=== PATIENT | female | born 1965 | race Caucasian/White ===

== ENCOUNTER 2020-11-24 06:56 | Emergency (ER) | payer BC, OTHER, SELFPAY ==
[2020-11-24 07:31] LABS: Absolute Lymphocytes (CBC) 2.2 K/uL (0.7-4.9); Basophils % 0.5 % (0-1.3); Lymphocytes % 24.7 % (15.3-44.8); MPV 8.2 fL (7.6-11.3); RBC Red Blood Cell Count 4.42 M/uL (3.86-4.86)
[2020-11-24] MEDS ORDERED: NA CHLORIDE 0.9% 500 ML ONE (07:45)
[2020-11-24] MEDS ORDERED: KETOROLAC 30 MG/ML INJ ONE (07:45)
[2020-11-24] MEDS ORDERED: ONDANSETRON 4 MG/2 ML VIAL ONE (07:45)
[2020-11-24] MEDS ORDERED: FENTANYL CITR 100 MCG/2 ML ONE (07:45)
[2020-11-24 07:52] LABS: Albumin 4.3 g/dL (3.4-5.0); Bilirubin Direct 0.2 mg/dL (0-0.2); Bilirubin Total 0.5 mg/dL (0.2-1.0); Protein, Total 8.6 g/dL (6.4-8.2)
[2020-11-24 08:02] LABS: Potassium 2.8 mmol/L (3.5-5.1)
[2020-11-24] MEDS ORDERED: KCL 20 MEQ/100 mL IVPB 20 MEQ/100 ML BAG IV ONE (08:26)
[2020-11-24] MEDS ORDERED: NA CHLORIDE 0.9% 250 ML ONE (08:41)
--- NOTE | 2020-11-24 09:04 | RAD REPORT ---
EXAM DESCRIPTION: CTAbdomen Pelvis W Contrast - 11/24/2020 8:40 am CLINICAL HISTORY: Abdominal pain. back pain;Abd pain COMPARISON: Abdomen Pelvis W Contrast dated 10/30/2017 TECHNIQUE: Biphasic CT imaging of the abdomen and pelvis was performed with 100 ml non-ionic IV cont rast. All CT scans are performed using dose optimization technique as appropriate and may include automated exposure control or mA/KV adjustment according to patient size. FINDINGS: The lung bases are clear.Small hiatal hernia. The liver, spleen, pancreas, adrenal glands and kidneys are within normal limits. Cholelithiasis. No bowel obstruction, free air, free fluid or abscess. The appendix is normal. No evidence of signi ficant lymphadenopathy. No suspicious bony findings. IMPRESSION: Cholelithiasis.
--- NOTE | 2020-11-24 09:33 | EDPHYS ---
Physician Documentation [facility] Name: Gayle Aj Age: 55 yrs Sex: Female : 1965 Arrival Date: 11/24/2020 Time: 06:56 Bed 16 Private MD: ED Physician Misa Barnett HPI: 11/24 06:58 This 55 yrs old Female presents to ER via Unassigned with complaints of Back cp Pain. 06:58 The patient presents with pain that is acute, with no known mechanism of injury. The cp symptoms are located in the left subscapular area, right subscapular area and mid back area. Onset: The symptoms/episode began/occurred suddenly, this morning. Associated signs and symptoms: Pertinent positives: abdominal pain, pain all over, Pertinent negatives: chest pain, constipation, dysuria, fever, incontinence, numbness, tingling, vomiting, weakness. The problem was sustained pain started suddenly upon awakening. 06:58 Modifying factors: the patient symptoms are aggravated by any movement. cp Historical: - Allergies: 06:59 No Known Allergies; ad5 - PMHx: 06:59 compressed disc C3-C4; Fibromyalgia; interstitial cystitis; ad5 - Immunization history:: Adult Immunizations unknown. - Social history:: Smoking status: unknown. ROS: 06:59 Abdomen/GI: Positive for abdominal pain, Negative for vomiting, diarrhea, constipation, cp bowel incontinence. 06:59 Back: Positive for pain at rest, pain with movement. 06:59 Constitutional: Negative for body aches, chills, fever, poor PO intake. cp 06:59 Eyes: Negative for injury, pain, redness, and discharge. cp 06:59 ENT: Negative for ear pain, sore throat, difficulty swallowing, difficulty handling secretions. 06:59 Cardiovascular: Negative for chest pain, palpitations. 06:59 Respiratory: Negative for cough, shortness of breath, wheezing. 06:59 : Negative for urinary symptoms, bladder incontinence. 06:59 Skin: Negative for rash. 06:59 Neuro: Negative for altered mental status, dizziness, headache, numbness, weakness. 06:59 All other systems are negative. Exam: 07:05 Constitutional: The patient appears in no acute distress, alert, awake, non-toxic, well cp developed, well nourished, uncomfortable. 07:05 Head/Face: Normocephalic, atraumatic. cp 07:05 Eyes: Periorbital structures: appear normal, Conjunctiva: normal, no exudate, no injection, Sclera: no appreciated abnormality, Lids and lashes: appear normal, bilaterally. 07:05 ENT: External ear(s): are unremarkable, Nose: is normal, Mouth: Lips: moist, Oral mucosa: moist, Posterior pharynx: Airway: no evidence of obstruction, patent. 07:05 Neck: C-spine: vertebral tenderness, is not appreciated, crepitus, is not appreciated, ROM/movement: is normal, is supple, no meningismus, no nuchal rigidity. 07:05 Chest/axilla: Inspection: normal, Palpation: is normal, no crepitus, no tenderness. 07:05 Cardiovascular: Rate: normal, Rhythm: regular, Edema: is not appreciated, JVD: is not appreciated. 07:05 Respiratory: the patient does not display signs of respiratory distress, Respirations: normal, no use of accessory muscles, no retractions, labored breathing, is not present, Breath sounds: are clear throughout, no decreased breath sounds, no stridor, no wheezing. 07:05 Abdomen/GI: Inspection: abdomen appears normal, Bowel sounds: active, all quadrants, Palpation: soft, in all quadrants, mild abdominal tenderness, in the right upper quadrant, rebound tenderness, is not appreciated, voluntary guarding, is not appreciated, involuntary guarding, is not appreciated. 07:05 Back: pain, that is severe, of the left subscapular area, right subscapular area and mid back area, ROM is painful, with all movement. 07:05 Skin: cellulitis, is not appreciated, no rash present. 07:05 Neuro: Orientation: to person, place \T\ time. Mentation: is normal, Motor: moves all fours, strength is normal, Sensation: is normal. 08:20 ECG was reviewed by the Attending Physician. cp Vital Signs: 06:57 BP 114 / 73; Pulse 76; Resp 20 S; Pulse Ox 100% on R/A; ad5 08:58 BP 112 / 75; Pulse 73; Resp 19 S; Pulse Ox 96% on R/A; jd3 10:08 BP 113 / 78; Pulse 69; Resp 16 S; Pulse Ox 99% on R/A; jd3 MDM: 07:00 Patient medically screened. cp 07:00 Differential diagnosis: Cholelithiasis Hydronephrosis ruptured disc, Ureterolithiasis cp vertebral fracture. 09:31 Data reviewed: vital signs, nurses notes, lab test result(s), radiologic studies, CT cp scan. Counseling: I had a detailed discussion with the patient and/or guardian regarding: the historical points, exam findings, and any diagnostic results supporting the discharge/admit diagnosis, lab results, radiology results, the need for outpatient follow up, a general surgeon, to return to the emergency department if symptoms worsen or persist or if there are any questions or concerns that arise at home. Response to treatment: the patient's symptoms have markedly improved after treatment, VSS. Pain markedly improved and patient resting comfortably in exam room. 11/24 06:59 Order name: Basic Metabolic Panel 11/24 06:59 Order name: CBC with Diff; Complete Time: 08:03 11/24 06:59 Order name: Hepatic Function; Complete Time: 08:03 11/24 08:03 Interpretation: Normal except: AST 53; TP 8.6; GLOB 4.3; A/G 1.0. 11/24 06:59 Order name: Lipase; Complete Time: 08:03 11/24 06:59 Order name: Urine Microscopic Only 11/24 06:59 Order name: Basic Metabolic Panel; Complete Time: 08:03 EDMS 11/24 09:08 Interpretation: Normal except: K 2.8; GLUC 135; GFR 51. 11/24 07:44 Order name: CT Abd/Pelvis - IV Contrast Only; Complete Time: 09:08 cp 11/24 08:06 Order name: Magnesium; Complete Time: 09:08 jd3 11/24 10:03 Order name: Urine Dipstick-Ancillary EDND 11/24 10:04 Order name: Urine --Ancillary (enter results) bd 11/24 06:59 Order name: IV Saline Lock; Complete Time: 07:19 cp 11/24 06:59 Order name: Labs collected and sent; Complete Time: 07:19 cp 11/24 06:59 Order name: Urine Dipstick-Ancillary (obtain specimen); Complete Time: 10:09 11/24 06:59 Order name: Urine Test (obtain specimen); Complete Time: 10:09 11/24 08:03 Order name: EKG; Complete Time: 08:03 cp 11/24 08:03 Order name: EKG - Nurse/Tech; Complete Time: 08:24 cp EC:20 Rate is 71 beats/min. Rhythm is regular. DC interval is normal. QRS interval is normal. cp QT interval is normal. Interpreted by me. Reviewed by me. Administered Medications: 07:31 Drug: NS 0.9% 500 ml Route: IV; Rate: bolus; Site: right antecubital; jd3 08:30 Follow up: Response: No adverse reaction; IV Status: Completed infusion; IV Intake: jd3 500ml 07:31 Drug: Ketorolac 15 mg Route: IVP; Site: right antecubital; jd3 08:30 Follow up: Response: No adverse reaction jd3 07:31 Drug: fentaNYL (PF) 25 mcg Route: IVP; Site: right antecubital; jd3 08:30 Follow up: Response: No adverse reaction; RASS: Alert and Calm (0) jd3 07:31 Drug: Zofran (Ondansetron) 4 mg Route: IVP; Site: right antecubital; jd3 08:30 Follow up: Response: No adverse reaction jd3 08:25 Drug: Potassium Chloride 20 mEq Route: IV; Rate: calculated rate; Site: right jd3 antecubital; 10:52 Follow up: Response: No adverse reaction; IV Status: Completed infusion jd3 Disposition Summary: 11/24/20 09:33 Discharge Ordered Location: Home cp Problem: new cp Symptoms: have improved cp Condition: Stable cp Diagnosis - Other cholelithiasis without obstruction cp Followup: cp - With: Zana Lim MD - When: 2 - 3 days - Reason: Recheck today's complaints Discharge Instructions: - Discharge Summary Sheet cp - Cholelithiasis cp Forms: - Medication Reconciliation Form cp - Thank You Letter cp - Antibiotic Education cp - Prescription Opioid Use cp Prescriptions: - Zofran 4 mg Oral Tablet - take 1 tablet by ORAL route every 12 hours As needed; 20 tablet; Refills: 0, cp Product Selection Permitted - dicyclomine 20 mg Oral Tablet - take 1 tablet by ORAL route 4 times per day; 30 tablet; Refills: 0, Product cp Selection Permitted Signatures: Dispatcher [employer] EDND Danilo Dumont PA PA cp Will, Chemo, RN RN jd3 Tien Roberson Corrections: (The following items were deleted from the chart) 11/25 07:00 11/24 06:59 Abdomen/GI: Positive for abdominal pain, [place]
--- NOTE | 2020-11-24 09:33 | ER ---
Nurse's Notes [facility] Name: Gayle Aj Age: 55 yrs Sex: Female : 1965 Arrival Date: 11/24/2020 Time: 06:56 Bed 16 Private MD: Diagnosis: Other cholelithiasis without obstruction Presentation: 11/24 06:57 Chief complaint: EMS states: Pt BIB EMS from home for c/o "spine pain" upon awakening ad5 this am. Pt denies recent fall or trauma. Distal SMCs intact, LYN without difficulty. VSS. 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 Coronavirus screen: At this time, the client does not indicate any symptoms associated with coronavirus-19. Ebola Screen: No symptoms or risks identified at this time. Initial Sepsis Screen: Does the patient meet any 2 criteria? No. Patient's initial sepsis screen is negative. Does the patient have a suspected source of infection? No. Patient's initial sepsis screen is negative. Risk Assessment: Do you want to hurt yourself or someone else? Unable to obtain. Onset of symptoms was November 24, 2020. 06:57 Method Of Arrival: EMS ad5 06:57 Acuity: DEYA 4 ad5 Triage Assessment: 07:00 General: Appears distressed, Behavior is cooperative, anxious. Pain: Complains of pain ad5 in back. Musculoskeletal: Circulation, motion, and sensation intact. Capillary refill < 3 seconds, Range of motion: intact in all extremities. Historical: - Allergies: 06:59 No Known Allergies; ad5 - PMHx: 06:59 compressed disc C3-C4; Fibromyalgia; interstitial cystitis; ad5 - Immunization history:: Adult Immunizations unknown. - Social history:: Smoking status: unknown. Screenin:00 Abuse screen: Denies threats or abuse. Denies injuries from another. Nutritional ad5 screening: No deficits noted. Tuberculosis screening: No symptoms or risk factors identified. Fall Risk None identified. Assessment: 07:32 General: Appears in no apparent distress. uncomfortable, Behavior is calm, cooperative, jd3 appropriate for age. Pain: Complains of pain in back and abdomen Quality of pain is described as sharp. Neuro: Level of Consciousness is awake, alert, obeys commands, Oriented to person, place, time, situation. Cardiovascular: Denies chest pain, Capillary refill < 3 seconds Patient's skin is warm and dry. Respiratory: Airway is patent Respiratory effort is even, unlabored, Respiratory pattern is regular, symmetrical, Denies cough, shortness of breath. GI: Abdomen is round non-distended, Abd is soft and non tender X 4 quads. Reports nausea, vomiting. : No signs and/or symptoms were reported regarding the genitourinary system. EENT: No signs and/or symptoms were reported regarding the EENT system. Derm: Skin is intact, Skin is dry, Skin is normal, Skin temperature is warm. Musculoskeletal: Circulation, motion, and sensation intact. Range of motion: intact in all extremities. 08:58 Reassessment: Patient appears in no apparent distress at this time. Patient and/or jd3 family updated on plan of care and expected duration. Pain level reassessed. Patient is alert, oriented x 3, equal unlabored respirations, skin warm/dry/pink. Patient states feeling better. 10:08 Reassessment: Patient appears in no apparent distress at this time. Patient and/or jd3 family updated on plan of care and expected duration. Pain level reassessed. Patient is alert, oriented x 3, equal unlabored respirations, skin warm/dry/pink. Patient states feeling better. Vital Signs: 06:57 BP 114 / 73; Pulse 76; Resp 20 S; Pulse Ox 100% on R/A; ad5 08:58 BP 112 / 75; Pulse 73; Resp 19 S; Pulse Ox 96% on R/A; jd3 10:08 BP 113 / 78; Pulse 69; Resp 16 S; Pulse Ox 99% on R/A; jd3 ED Course: 06:56 Patient arrived in ED. ad5 06:58 Danilo Dumont PA is PHCP. cp 06:58 Misa Barnett MD is Attending Physician. cp 06:59 Triage completed. ad5 07:00 Arm band placed on. ad5 07:00 Patient has correct armband on for positive identification. Bed in low position. Side ad5 rails up X2. Pulse ox on. NIBP on. Door closed. Noise minimized. Warm blanket given. Head of bed lowered. 07:19 Chemo Will RN is Primary Nurse. jd3 07:32 Inserted saline lock: 20 gauge in right antecubital area, using aseptic technique. jd3 Blood collected. 08:40 CT Abd/Pelvis - IV Contrast Only In Process Unspecified. EDMS 09:32 Zana Lim MD is Referral Physician. 10:09 Urine --Ancillary (enter results) Sent. [facility] 10:09 Basic Metabolic Panel Sent. [facility] 10:09 Urine collected: clean catch specimen, cloudy. [facility] 10:56 No provider procedures requiring assistance completed. IV discontinued, intact, jd3 bleeding controlled, No redness/swelling at site. Pressure dressing applied. Administered Medications: 07:31 Drug: NS 0.9% 500 ml Route: IV; Rate: bolus; Site: right antecubital; jd3 08:30 Follow up: Response: No adverse reaction; IV Status: Completed infusion; IV Intake: jd3 500ml 07:31 Drug: Ketorolac 15 mg Route: IVP; Site: right antecubital; jd3 08:30 Follow up: Response: No adverse reaction jd3 07:31 Drug: fentaNYL (PF) 25 mcg Route: IVP; Site: right antecubital; jd3 08:30 Follow up: Response: No adverse reaction; RASS: Alert and Calm (0) jd3 07:31 Drug: Zofran (Ondansetron) 4 mg Route: IVP; Site: right antecubital; jd3 08:30 Follow up: Response: No adverse reaction jd3 08:25 Drug: Potassium Chloride 20 mEq Route: IV; Rate: calculated rate; Site: right jd3 antecubital; 10:52 Follow up: Response: No adverse reaction; IV Status: Completed infusion jd3 Intake: 08:30 IV: 500ml; Total: 500ml. jd3 Outcome: 09:33 Discharge ordered by . cp 10:53 Condition: good 10:53 Discharge instructions given to patient, Instructed on discharge instructions, follow up and referral plans. medication usage, Demonstrated understanding of instructions, follow-up care, medications, Prescriptions given X 2. 10:56 Patient left the ED. jd3 10:56 Discharged to home ambulatory, with family. jd3 Signatures: Dispatcher [employer] EDRupal Hanna RN RN ss Danilo Dumont PA PA cp Martinez, Maria 5 Chemo Will RN RN jd3 Tien Roberson
[2020-11-24 10:03] LABS: Urine Blood Trace-intact (Negative); Urine Glucose Negative (Negative); Urine Protein Negative (Negative); Urine Specific Gravity 1.015 (1.005-1.030); Urine pH 8.5 (5.0-7.0)
[2020-11-24 10:21] LABS: Urine Bacteria NONE SEEN /HPF (<20); Urine RBC <5 /HPF (NONE SEEN)
[2020-11-24 10:23] LABS: Urine Specific Gravity/Preg 1.015 (1.005-1.030)
--- NOTE | 2020-11-25 07:31 | EKG ---
Test Date: 2020-11-24 Test Time: 08:14:06 [employer] Person: KAVITA MEASUREMENT RESULTS: Intervals: Rate: 71 MT: 148 QRSD: 78 QT: 416 QTc: 452 [place]: P: 58 MT: 148 QRS: 64 T: -53 INTERPRETIVE STATEMENTS: Sinus rhythm with occasional premature ventricular complexes Low voltage QRS Cannot rule out Anterior infarct, age undetermined T wave abnormality, consider inferior ischemia Abnormal ECG No previous ECG available for comparison Electronically Signed On 11-25-20 07:28:38 CDT by Terrence Parrish
[2020-11-25 09:20] VITALS: BP 113/78; O2SAT 99
== END 2020-11-24 10:56 | disposition home or self-care (01) ==
LOC: ER 06:56
DX: K80.80 Other cholelithiasis without obstruction (principal)
CPT/HCPCS: 96365; 96361; 93005; 85025; 80048; 36415; 83735; 81025; 80076; 83690; 74177; 96375; 99284; 96366; Q9967; J3480; J3010; J7050; J7040; J2405; 81003; 81015

== ENCOUNTER 2020-11-30 23:48 | Emergency (ER) | payer BC ==
--- NOTE | 2020-12-01 02:19 | EDPHYS ---
Physician Documentation [facility] Name: Gayle Aj Age: 55 yrs Sex: Female : 1965 Arrival Date: 11/30/2020 Time: 23:52 Bed 28 Private MD: Fred French B ED Physician Oseas Ortega HPI: 12/01 02:00 This 55 yrs old Female presents to ER via Ambulatory with complaints of Foot mh7 Injury. 02:00 The patient presents with an abrasion, a contusion, pain, that is acute. The complaints mh7 affect the right first toe. Context: The problem was sustained at home, resulted from a heavy object falling, Garbage can, Mechanism of Injury: Direct blow the patient can fully bear weight, the patient is able to ambulate, with mild difficulty. Onset: The symptoms/episode began/occurred yesterday, at 11:00. Modifying factors: The symptoms are alleviated by OTC meds, the symptoms are aggravated by weight bearing. Associated signs and symptoms: Pertinent positives: swelling, Pertinent negatives: calf tenderness, fever, nausea, numbness, rash, tingling, vomiting, warmth, weakness. Severity of symptoms: At their worst the symptoms were mild, last night, in the emergency department the symptoms have improved, markedly. 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 - Social history:: Smoking status: Patient denies any tobacco usage or history of. ROS: 02:00 Constitutional: Negative for fever, chills, and weight loss, Eyes: Negative for injury, mh7 pain, redness, and discharge, ENT: Negative for injury, pain, and discharge, Neck: Negative for injury, pain, and swelling, Cardiovascular: Negative for chest pain, palpitations, and edema, Respiratory: Negative for shortness of breath, cough, wheezing, and pleuritic chest pain, Abdomen/GI: Negative for abdominal pain, nausea, vomiting, diarrhea, and constipation, Back: Negative for injury and pain, : Negative for injury, bleeding, discharge, and swelling, Skin: Negative for injury, rash, and discoloration, Neuro: Negative for headache, weakness, numbness, tingling, and seizure, Psych: Negative for depression, anxiety, suicide ideation, homicidal ideation, and hallucinations, Allergy/Immunology: Negative for hives, rash, and allergies, Endocrine: Negative for neck swelling, polydipsia, polyuria, polyphagia, and marked weight changes, Hematologic/Lymphatic: Negative for swollen nodes, abnormal bleeding, and unusual bruising. Exam: 02:00 Constitutional: This is a well developed, well nourished patient who is awake, alert, mh7 and in no acute distress. Head/Face: Normocephalic, atraumatic. Skin: Warm, dry with normal turgor. Normal color with no rashes, no lesions, and no evidence of cellulitis. 02:00 Neuro: Awake and alert, GCS 15, oriented to person, place, time, and situation. Cranial nerves II-XII grossly intact. Motor strength 5/5 in all extremities. Sensory grossly intact. Cerebellar exam normal. Normal gait. Psych: Awake, alert, with orientation to person, place and time. Behavior, mood, and affect are within normal limits. 02:00 Musculoskeletal/extremity: Extremities: noted in the right first toe: pain, tenderness, Mild, ROM: intact in all extremities, Circulation is intact in all extremities. Sensation intact. Compartment Syndrome exam of affected extremity: is normal. no numbness, no tingling, no sensation deficit, no palor, no weak pulses, Joints: All joints appear normal with full range of motion. Weight bearing: able to fully bear weight, without difficulty, Tendon exam: specific tendon testing normal through active and passive range of motion Vital Signs: 00:18 BP 112 / 78; Pulse 72; Resp 18 S; Temp 98.1(TE); Pulse Ox 100% on R/A; Weight 68.04 kg ca1 (R); Height 5 ft. 2 in. (157.48 cm) (R); Pain 9/10; 00:18 Body Mass Index 27.44 (68.04 kg, 157.48 cm) ca1 MDM: 02:00 Differential diagnosis: fracture, sprain, Contusion. Data reviewed: vital signs, nurses [facility] notes, radiologic studies, plain films. 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 Response to treatment: the patient's symptoms have markedly improved after treatment. 02:18 Patient medically screened. [facility] 12/01 00:20 Order name: Foot Right 3 View XRAY ca1 Administered Medications: No medications were administered Disposition Summary: 12/01/20 02:18 Discharge Ordered Location: Home [facility] Problem: new [facility] Symptoms: have improved [facility] Condition: Stable [facility] Diagnosis - Contusion, Right Great Toe [facility] Followup: [facility] - With: Private Physician - When: 1 - 2 days - Reason: Worsening of condition, Recheck today's complaints, Continuance of care, Re-evaluation by your physician Followup: [facility] - With: Gio Sanchez DPM - When: 1 - 2 days - Reason: Worsening of condition, Recheck today's complaints Discharge Instructions: - Discharge Summary Sheet [facility] - Contusion, Oats-eu-Eiim [facility] Forms: - Medication Reconciliation Form [facility] - Thank You Letter [facility] - Antibiotic Education [facility] - Prescription Opioid Use [facility] Signatures: Dispatcher [employer] EDMS Rach Earl RN RN ca1 Oseas Ortega MD MD [facility] Corrections: (The following items were deleted from the chart) 00:20 00:20 Allergies: No Known Allergies; ca1 ca1
--- NOTE | 2020-12-01 02:19 | ER ---
Nurse's Notes [facility] Name: Gayle Aj Age: 55 yrs Sex: Female : 1965 Arrival Date: 11/30/2020 Time: 23:52 Bed 28 Private MD: Fred French B Diagnosis: Contusion, Right Great Toe Presentation: 12/01 00:18 Chief complaint: Patient states: Dropped a garbage can on mt big toe this morning, now ca1 it's swollen and painful. Coronavirus screen: Client denies travel out of the [place] in the last 14 days. At this time, the client does not indicate any symptoms associated with coronavirus-19. Ebola Screen: Patient negative for fever greater than or equal to 101.5 degrees Fahrenheit, and additional compatible Ebola Virus Disease symptoms Patient denies exposure to infectious person. Patient denies travel to an Ebola-affected area in the 21 days before illness onset. No symptoms or risks identified at this time. Initial Sepsis Screen: Does the patient meet any 2 criteria? No. Patient's initial sepsis screen is negative. Does the patient have a suspected source of infection? No. Patient's initial sepsis screen is negative. Risk Assessment: Do you want to hurt yourself or someone else? Patient reports no desire to harm self or others. Onset of symptoms was December 01, 2020. 00:18 Method Of Arrival: Ambulatory ca1 00:18 Acuity: DEYA 4 ca1 VP GLOBAL: 00:20 LMP N/A - Irregular menses ca1 Historical: - Allergies: 00:20 Dicyclomine; ca1 - PMHx: 00:20 compressed disc C3-C4; Fibromyalgia; interstitial cystitis; ca1 - Immunization history:: Client reports receiving the 2nd dose of the Covid vaccine, Client reports receiving the 1st dose of the Covid vaccine. - Social history:: Smoking status: Patient denies any tobacco usage or history of. Screenin:07 Abuse screen: Denies threats or abuse. Nutritional screening: No deficits noted. em Tuberculosis screening: No symptoms or risk factors identified. Fall Risk None identified. Assessment: 02:07 General: Appears in no apparent distress. comfortable, Behavior is calm, cooperative, em appropriate for age. Pain: Complains of pain in right first toe. Neuro: Level of Consciousness is awake, alert, obeys commands, Oriented to person, place, time, situation. Cardiovascular: Capillary refill < 3 seconds Patient's skin is warm and dry. Respiratory: Airway is patent Respiratory effort is even, unlabored, Respiratory pattern is regular, symmetrical. GI: Abdomen is flat. Derm: Skin is intact, is healthy with good turgor, Skin is pink, warm \T\ dry. Musculoskeletal: Capillary refill < 3 seconds, Range of motion: intact in all extremities, Swelling present in right first toe. Vital Signs: 00:18 BP 112 / 78; Pulse 72; Resp 18 S; Temp 98.1(TE); Pulse Ox 100% on R/A; Weight 68.04 kg ca1 (R); Height 5 ft. 2 in. (157.48 cm) (R); Pain 9/10; 00:18 Body Mass Index 27.44 (68.04 kg, 157.48 cm) ca1 ED Course: 11/30 23:52 Patient arrived in ED. es 23:52 Fred French MD is Private Physician. 08/04 00:19 Triage completed. ca1 00:20 Arm band placed on right wrist. ca1 00:40 Foot Right 3 View XRAY In Process Unspecified. EDMS 01:56 Oseas Ortega MD is Attending Physician. [facility] 02:07 Dakota Arias, RN is Primary Nurse. em 02:07 Patient has correct armband on for positive identification. em 02:07 No provider procedures requiring assistance completed. em 02:18 Gio Sanchez DPM is Referral Physician. [facility] 02:26 Patient did not have IV access during this emergency room visit. ak2 Administered Medications: No medications were administered Outcome: 02:18 Discharge ordered by . [facility] 02:26 Discharged to home ambulatory. ak2 02:26 Condition: good 02:26 Discharge instructions given to patient. 02:26 Patient left the ED. ak2 Signatures: Dispatcher [employer] EDMS Brooklyn Montesinos Edgar, RN Rach Noble RN RN [facility] [place] Oseas Ortega MD MD Jose Howard ak2 Corrections: (The following items were deleted from the chart) 00:20 00:20 Allergies: No Known Allergies; [place] [id number]
[2020-12-01 02:39] VITALS: BP 112/78; TEMP 98.1; O2SAT 100
--- NOTE | 2020-12-01 08:44 | RAD REPORT ---
EXAM DESCRIPTION: RAD - Foot Right 3 View - 12/01/2020 12:40 am CLINICAL HISTORY: PAIN COMPARISON: No comparisons FINDINGS: Small plantar calcaneal spurs are present. No acute fracture or dislocation seen. Prominen t dorsal spurring is noted from the first metatarsal head with adjacent soft tissue swelling.
== END 2020-12-01 02:26 | disposition home or self-care (01) ==
LOC: ER 23:48
DX: S90.111A Contusion of right great toe without damage to nail, initial encounter (principal); W22.8XXA Striking against or struck by other objects, initial encounter; Y92.009 Unspecified place in unspecified non-institutional (private) residence as the place of occurrence of the external cause; Z88.8 Allergy status to other drugs, medicaments and biological substances
CPT/HCPCS: 99283